=== PATIENT | male | born 1945 | race Caucasian/White ===

== ENCOUNTER 2017-06-25 06:07 | Day surgery (SDC) | payer OTHER ==
[~2017-06-25] VITALS: Ht 167.6 cm; Wt 100.2 kg
[2017-06-25 07:25] VITALS: BP 157/81
[2017-06-25 10:10] VITALS: BP 138/65
== END 2017-06-25 10:10 | disposition home or self-care (01) ==
LOC: DS 06:07 → OR 07:30 → DS 07:30
PROVIDERS: Ophthalmology
PROC: 08RK3JZ Replacement of Left Lens with Synthetic Substitute, Percutaneous Approach (ICD-10-PCS; principal; 2017-06-25 07:30)
DX: H25.12 Age-related nuclear cataract, left eye (principal); I10 Essential (primary) hypertension; E78.5 Hyperlipidemia, unspecified; E10.9 Type 1 diabetes mellitus without complications; E66.9 Obesity, unspecified; Z68.30 Body mass index [BMI] 30.0-30.9, adult; Z96.41 Presence of insulin pump (external) (internal); Z79.4 Long term (current) use of insulin
CPT/HCPCS: 82962; C1780; J2001; J2250; J2704; J3010; J3490; J7040